=== PATIENT | male | born 1945 | race Caucasian/White ===

== ENCOUNTER 2021-02-22 16:49 | Emergency (ER) | payer MEDICARE, OTHER, SELFPAY ==
[2021-02-22] VITALS (17 sets, daily range): BP systolic 170–217; BP diastolic 87–102; PULSE 43–76; RESP 13–19; TEMP 36.7; O2SAT 97–99; BMI 29.3
--- NOTE | 2021-02-22 16:59 | DI.CT.S_ITS ---
PROCEDURE: CT HEAD/BRAIN WO CON INDICATIONS: lacerated cornea, push images to [facility] TECHNIQUE: Noncontrast 4.5 mm thick angled axial sections acquired from the foramen magnum to the vertex, with coronal and sagittal reformats. For radiation dose reduction, the following was used: automated exposure control, adjustment of mA and/or kV according to patient size. COMPARISON: None. FINDINGS: Image quality: Excellent. CSF spaces: Basal cisterns are patent. No extra-axial fluid collections. Ventricles are normal in size and shape. Brain: No midline shift. No intracranial masses or hemorrhage. No area of hypodensity in a large vascular distribution to suggest acute infarction. Periventricular hypodensity consistent with chronic microvascular ischemic change. Age-related parenchymal loss. Skull and face: Calvarium and visualized facial bones are intact, without suspicious lesions. No retro bulbar edema. Sinuses: Visualized sinuses and mastoids are clear. IMPRESSION: No acute intracranial abnormality. Dictated by: Phi Monsivais M.D. on 02/22/2021 at 17:17 Approved by: Phi Monsivais M.D. on 02/22/2021 at 17:20
--- NOTE | 2021-02-22 17:03 | ED.GENADULT ---
HPI - General Adult <Ronnie Alfaro DO - Last Filed: 02/23/21 07:08> General Chief complaint: Eye Problems Stated complaint: Cut in [facility]t Eye/Eye Dr [place] CT Time Seen by Provider: 02/22/21 17:01 Source: patient Mode of arrival: Ambulatory Limitations: no limitations History of Present Illness HPI narrative: Patient is a 75-year-old male. Approximately 2 days ago patient was using a fusion juncture grinder. Does not remember specific incident when he got something into his eye but later in the day started noticing some discomfort. Went to an outside facility. Was told that he had a foreign body in his eye. Apparently they were unable to remove the foreign body. He is placed on antibiotics. Was told to follow up with Ophthalmology this morning. He did go to the chief jailer office. Evaluated by the chief jailer. I received a call from the chief jailer stating that the patient does have a corneal laceration with leakage of fluid in his right eye. He was sent to the emergency department for a head CT to evaluate for potential retained foreign body and to be transferred for specialist evaluation. Patient reports blurriness to his right eye. No prior eye surgeries. He does wear corrective lenses. Related Data Home Medications Medication Instructions Recorded Confirmed clonidine HCl 0.1 mg tablet 0.1 mg PO BID #0 02/17/12 02/22/21 (Catapres) losartan 100 1 tab PO QDAY #0 02/17/12 02/22/21 mg-hydrochlorothiazide 25 mg tablet (Hyzaar) naproxen sodium 220 mg tablet 220 mg PO PRN #0 02/17/12 02/22/21 (Aleve) atorvastatin 20 mg tablet 20 mg PO BEDTIME 02/22/21 02/22/21 diltiazem HCl 120 mg 240 mg PO DAILY 02/22/21 02/22/21 capsule,extended release 24 hr docosahexaenoic acid (dha)-epa 120 1 cap PO BID 02/22/21 02/22/21 mg-180 mg capsule (Fish Oil) erythromycin 5 mg/gram (0.5 %) eye 1 applic EYE-RIGHT BEDTIME 02/22/21 02/22/21 ointment rhfatjrajsd-zwlzqcqnq-fux C-Mn 500 1 cap PO DAILY 02/22/21 02/22/21 mg-400 mg capsule (Glucosamine Chondroitin Maximum Strength) Allergies Allergy/AdvReac Type Severity Reaction Status Date / Time No Known Drug Allergies Allergy Verified 02/22/21 17:08 Review of Systems <Ronnie Alfaro DO - Last Filed: 02/23/21 07:08> Constitutional Constitutional: Denies headache(s) Eyes Eyes: Reports as per HPI and Reports system reviewed and no additional complaints, except as documented ENT Ears, Nose, Mouth, and Throat: Denies headache(s) Integumentary/Breasts Skin/Breast: Reports system reviewed and no additional complaints, except as documented Neurologic Neurologic: Denies headache(s) Hematologic/Lymphatic On Anticoagulants: No Patient History <Ronnie Alfaro DO - Last Filed: 02/23/21 07:08> Medical History High cholesterol Hypertension Social History Smoking Status: Former smoker Exam <Ronnie Alfaro DO - Last Filed: 02/23/21 07:08> Initial Vital Signs Initial Vital Signs: Vital Signs Temperature 98.1 F 02/22/21 16:55 Pulse Rate 76 02/22/21 16:55 Respiratory Rate 17 02/22/21 16:55 Blood Pressure 217/102 H 02/22/21 16:55 Pulse Oximetry 99 02/22/21 16:55 Const General: cooperative, healthy appearing, comfortable and well developed [facility] Head: normal to inspection and normocephalic Eyes Pupils: other (Right pupil round dilated minimally reactive, left eye round and reactive) EOM: EOM intact bilaterally Other: With corrective lenses OS 20 30, OD 20/200 Fluorescein staining there is corneal defect on the right eye nasal aspect approximately 4 o'clock position. There is no foreign body noted. Resp Effort & Inspection: normal respiratory effort Skin General: no rashes or lesions noted Neuro General: patient alert, patient awake, patient oriented x3 and moves all extremities Extrem General: normal to inspection and capillary refill normal Psych Appearance: grossly normal and well kempt <Sharda Haynes MD - Last Filed: 02/22/21 20:05> Initial Vital Signs Initial Vital Signs: Vital Signs Temperature 98.1 F 02/22/21 16:55 Pulse Rate 76 02/22/21 16:55 Respiratory Rate 17 02/22/21 16:55 Blood Pressure 217/102 H 02/22/21 16:55 Pulse Oximetry 99 02/22/21 16:55 Course <Ronnie Alfaro DO - Last Filed: 02/23/21 07:08> Orders Ordered: Discontinued Medications Fluorescein Sodium (Fluorescein 1 Mg Strip) 1 mg EYE-BOTH NOW ONE Stop: 02/22/21 18:23 Last Admin: 02/22/21 19:03 Dose: 1 mg Documented by: THANIA Vital Signs Vital signs: Vital Signs - 8 hr 02/22/21 16:55 02/22/21 17:11 02/22/21 17:16 Temperature 98.1 F Pulse Rate 76 54 L 52 L Respiratory Rate 17 17 Blood Pressure 217/102 H 203/98 H 209/100 H Pulse Oximetry 99 98 99 02/22/21 17:30 02/22/21 17:45 02/22/21 18:00 Temperature Pulse Rate 51 L 49 L 51 L Respiratory Rate 18 13 13 Blood Pressure 194/94 H 182/88 H Pulse Oximetry 99 98 98 02/22/21 18:01 Temperature Pulse Rate 52 L Respiratory Rate 13 Blood Pressure 184/94 H Pulse Oximetry 98 <Sharda Haynes MD - Last Filed: 02/22/21 20:05> Orders Ordered: Discontinued Medications Fluorescein Sodium (Fluorescein 1 Mg Strip) 1 mg EYE-BOTH NOW ONE Stop: 02/22/21 18:23 Last Admin: 02/22/21 19:03 Dose: 1 mg Documented by: THANIA Vital Signs Vital signs: Vital Signs - 8 hr 02/22/21 16:55 02/22/21 17:11 02/22/21 17:16 Temperature 98.1 F Pulse Rate 76 54 L 52 L Respiratory Rate 17 17 Blood Pressure 217/102 H 203/98 H 209/100 H Pulse Oximetry 99 98 99 02/22/21 17:30 02/22/21 17:45 02/22/21 18:00 Temperature Pulse Rate 51 L 49 L 51 L Respiratory Rate 18 13 13 Blood Pressure 194/94 H 182/88 H Pulse Oximetry 99 98 98 02/22/21 18:01 Temperature Pulse Rate 52 L Respiratory Rate 13 Blood Pressure 184/94 H Pulse Oximetry 98 Medical Decision Making <Ronnie Alfaro DO - Last Filed: 02/23/21 07:08> Lab Data Labs: Lab Results 02/22/21 Range/Units 17:18 SARS-CoV-2 (PCR) Negative (Negative) Imaging Data CT scan - head: Radiologist's Impression: [address] [address] [address] Scan Report Signed Patient: Refugio King MR#: [id number] : 1945 Acct:[id number] Age/Sex: 75 / M Date of Service: 02/22/21 Loc: ED Accession Number: [id number] ?? Procedure: CT head/brain wo con Ordering Provider: Ronnie Alfaro D.O. PROCEDURE:? CT HEAD/BRAIN WO CON ? INDICATIONS:? lacerated cornea, push images to [facility] ? TECHNIQUE:? Noncontrast 4.5 mm thick angled axial sections acquired from the foramen magnum to the vertex, with coronal and sagittal reformats.? For radiation dose reduction, the following was used:? automated exposure control, adjustment of mA and/or kV according to patient size.? ? COMPARISON:? None. ? FINDINGS:? Image quality:? Excellent.? ? CSF spaces:? Basal cisterns are patent.? No extra-axial fluid collections.? Ventricles are normal in size and shape.? ? Brain:? No midline shift.? No intracranial masses or hemorrhage.? No area of hypodensity in a large vascular distribution to suggest acute infarction. Periventricular hypodensity consistent with chronic microvascular ischemic change. Age-related parenchymal loss. ? Skull and face:? Calvarium and visualized facial bones are intact, without suspicious lesions.? No retro bulbar edema. ? Sinuses:? Visualized sinuses and mastoids are clear.? ? IMPRESSION:? No acute intracranial abnormality. ? ? Dictated by: Phi Monsivais M.D. on 02/22/2021 at 17:17 ? ? Approved by: Phi Monsivais M.D. on 02/22/2021 at 17:20?? MDM Narrative Medical decision making narrative: I do not have the ophthalmology notes to review however I did receive a call from Dr. Herrera at the Ophthalmology Department here at [facility] who stated that the patient did have physical exam findings with a corneal laceration to his right eye and findings consistent with leakage of fluid. Images sent to [facility]. Care turned over to Dr. Haynes to follow up and disposition. <Sharda Haynes MD - Last Filed: 02/22/21 20:05> Lab Data Labs: Lab Results 02/22/21 Range/Units 17:18 SARS-CoV-2 (PCR) Negative (Negative) MDM Narrative Medical decision making narrative: I do not have the ophthalmology notes to review however I did receive a call from Dr. Herrera at the Ophthalmology Department here at [facility] who stated that the patient did have physical exam findings with a corneal laceration to his right eye and findings consistent with leakage of fluid. Images sent to [facility]. Care turned over to Dr. Haynes to follow up and disposition. 8pm spoke with transfer center and Dr. Deng Sommer, ophthalmology. His recommendation was that this gentleman be seen this evening due to the significant decreased acuity in the right eye with the perforating injury of the globe. In discussion with the patient and his , he is hemodynamically stable and she is willing to drive him to [facility] I believe that he will be transported to [facility] ER is safe and appropriate. He will be given full transfer package and DrJulia directly to the ED. Again I recommended that he not eat until seen by Ophthalmology at [facility]. Safe for POV transfer to [facility] Discharge Plan Departure Patient Disposition: [facility] Clinical Impression: Perforating injury of globe of both eyes Corneal laceration of right eye Qualifiers: Encounter type: subsequent encounter Qualified Code(s): S05.31XD - Ocular laceration without prolapse or loss of intraocular tissue, right eye, subsequent encounter Activity Restrictions/Additional Instructions: This is a perforating injury of right eye only, there were no ICD 10 options for perforating injury of globe of single eye Prescriptions: No Action naproxen sodium [Aleve] 220 MG tablet 220 mg PO PRN Qty: 0 0RF clonidine HCl [Catapres] 0.1 MG tablet 0.1 mg PO BID Qty: 0 0RF losartan-hydrochlorothiazide [Hyzaar] 100 MG/25 MG tablet 1 tab PO QDAY Qty: 0 0RF atorvastatin 20 mg tablet 20 mg PO BEDTIME 0RF erythromycin 5 mg/gram (0.5 %) ointment 1 applic EYE-RIGHT BEDTIME 0RF diltiazem HCl 120 mg capsule,extended release 24hr 240 mg PO DAILY 0RF rsapadwvmgv-[id number]-lew C-Mn [Glucosamine Chondroitin MaxStr] 500-400 mg Capsule 1 cap PO DAILY 0RF Fish Oil 120-180 mg Capsule 1 cap PO BID 0RF Referrals: Jacques Escobar MD [Primary Care Provider] -
--- NOTE | 2021-02-22 17:18 | PC.NURSE ---
Pupil of affected eye was dilated therefore visual acuity test was not completed at time of assessment. aware.
[2021-02-22 17:40] LABS: COVID19 -Nasal RAPID Negative (Negative)
[2021-02-22] MEDS: FLUORESCEIN 1 MG STRIP EYE-BOTH (19:03)
== END 2021-02-22 20:35 | disposition short-term general hospital (02) ==
PROVIDERS: Emergency Provider Emergency Medicine; PCP Student in an Organized Health Care Education/Training Program
DX: S05.31XA Ocular laceration without prolapse or loss of intraocular tissue, right eye, initial encounter (principal); S05.8X1A Other injuries of right eye and orbit, initial encounter; W45.8XXA Other foreign body or object entering through skin, initial encounter; Z20.822 Contact with and (suspected) exposure to COVID-19
CPT/HCPCS: 70450; 87635; 99284; C9803